=== PATIENT | female | born 1955 | race Caucasian/White ===

== ENCOUNTER → 2018-07-20 07:59 | Outpatient (CLI) | payer SELFPAY ==
[2018-07-20 08:29] LABS: Erythrocyte Sedimentation Rate 2 mm/hr (0-30)
[2018-07-20 08:31] LABS: Hematocrit 43.4 % (37-47); Hemoglobin 14.6 g/dl (12.0-15.0); Mean Corp Hgb Conc 33.6 g/gl (32-36); Mean Corpuscular Volume 86.3 fL (81-99); Mean Platelet Vol. 9.4 fl (6.2-12.0); Platelet Count 223 K/mm3 (150-450); RBC Distribution Width CV 13.7 % (11.6-14.6); RBC Distribution Width SD 42.1 fl (35.1-43.9); Red Blood Count 5.03 M/mm3 (4.2-5.4); Scan Indicated on CBC? Y/N NO; White Blood Count 4.7 K/mm3 (4.4-11.0)
[2018-07-20 08:49] LABS: ALB/GLOB Ratio 1.1 RATIO (0.9-2.4); AST(SGOT) 15 U/L (15-37); Alanine Aminotransfer ALT/SGPT 19 U/L (13-56); Albumin, Serum 4.1 g/dL (3.2-5.0); Alkaline Phosphatase 74 U/L (45-117); Anion Gap 7 (5-15); BUN 16 mg/dL (7-18); BUN/Creat Ratio 19.6 RATIO (10-20); Chloride 106 mmol/L (98-107); Cholesterol 260 mg/dL (200); Creatinine, Serum 0.82 mg/dL (0.55-1.02); EST Glomerular Filtration Rate 76 mL/min (>60); Est Glom Filt Rate - Afr Amer 92 mL/min (>60); Globulin 3.7 g/dL (2.2-4.2); Glucose 116 mg/dL (74-106); High Density Lipoprotein 72 mg/dL; Potassium 3.6 mmol/L (3.5-5.1); Protein, Total 7.8 g/dL (6.4-8.2); Sodium Level 141 mmol/L (136-145); Thyroid Stim Hormone (TSH) 1.78 uIU/mL (0.358-3.74); Triglycerides 89 mg/dL; Very Low Density Lipoprotein 18 mg/dL (5-40)
== END ==
PROVIDERS: Visit Provider Internal Medicine
DX: Z00.00 Encounter for general adult medical examination without abnormal findings (principal); R26.89 Other abnormalities of gait and mobility
CPT/HCPCS: 36415; 80053; 80061; 84443; 85027; 85652

== ENCOUNTER → 2018-08-01 07:57 | Outpatient (CLI) | payer SELFPAY ==
--- NOTE | 2018-08-01 08:15 | MRI_ITS ---
STUDY: MRI BRAIN WITH AND WITHOUT CONTRAST (ATTENTION INTERNAL AUDITORY CANALS - I.A.C.'s) REASON FOR EXAM: Female, 63 years old. Vertigo TECHNIQUE: Standardized multiplanar fat and water weighted pulse sequences were obtained. 11 IV Dotarem was administered for the contrast portion of the examination. COMPARISON: None. FINDINGS: Normal bilateral temporal bones. Normal bilateral internal auditory canals. There is no demonstrated intracanalicular or cisternal vestibular schwannoma (acoustic neuroma). There is no enhancement of the bilateral VIIth or VIIIth cranial nerves. Normal bilateral cochlea, vestibules and semicircular canals. Normal size of the ventricles and extra-axial spaces for the patient's age. Normal white matter tracts of the supratentorial brain. Normal bilateral basal ganglia. Normal thalami. Normal flow voids within the major intracranial circulation suggesting patency by spin echo criteria. Normal venous enhancement. There is no enhancing intra-axial or extra-axial abnormality. There is no extra-axial fluid accumulation. Normal sella turcica, pituitary gland, infundibular stalk, optic chiasm and hypothalamus. Normal tectal plate and pineal gland. Normal midbrain, gayle and medulla. Normal cerebellum. Normal basal cisterns. No demonstrated orbital abnormality, within the constraints of a routine brain study. Left maxillary sinus disease. Normal calvarium and skull base. Normal visualized soft tissue structures. Normal visualized upper cervical spine. MRI/Brain W/WO Contrast IMPRESSION: Normal unenhanced and enhanced MRI of the bilateral internal auditory canals (I.A.C's). No evidence of acute intra-axial pathology. Electronically Signed: Ananda Cross MD at 10:40 EDT Tel , Service support ,
== END ==
PROVIDERS: Family Provider Internal Medicine; PCP Internal Medicine; Referring Provider Internal Medicine; Visit Provider Internal Medicine
DX: R42 Dizziness and giddiness (principal)
CPT/HCPCS: 70553; A9575

== ENCOUNTER → 2023-07-16 | Outpatient (CLI) | payer SELFPAY | END | disposition home or self-care (01) | LOC: LAB 10:45 | PROVIDERS: PCP Internal Medicine | DX: Z00.00 Encounter for general adult medical examination without abnormal findings (principal) | CPT/HCPCS: 36415 ==

== ENCOUNTER 2025-01-07 18:50 | Emergency (ER) | payer MEDICARE, SELFPAY ==
[2025-01-07 18:51] VITALS: BP 143/69; PULSE 99; RESP 16; TEMP 36.2; O2SAT 100; BMI 20.5
--- NOTE | 2025-01-07 19:20 | EKG12_ITS ---
Test Reason : CP Blood Pressure : */* mmHG Vent. Rate : 93 BPM Atrial Rate : 93 BPM P-R Int : 130 ms QRS Dur : 74 ms QT Int : 350 ms P-R-T Axes : 51 41 47 degrees QTcB Int : 435 ms Normal sinus rhythm Normal ECG Confirmed by ANISA BELTRAN, ARIANA ([id number]), news editor SOLIS STARKS ([id number]) on 01/10/2025 8:20:32 AM Referred By: ER Confirmed By: ARIANA LANGE MD
--- NOTE | 2025-01-07 19:21 | ED.VIS.CHEST ---
HPI History of Present Illness Chief Complaint: Chest Pain Narrative Narrative: Patient is a 69-year-old female presenting to the emergency department for "not feeling right" and having intermittent palpitations, shortness of breath and chest pain. Patient has a past medical history of GERD, asthma and a breast lump. Patient states 2 months ago after she got done with a bike ride she felt her heart pounding all night and folic she could not catch her breath. She states since then she has had intermittent episodes of the same feeling along with palpitations and left-sided chest pain. She denies the pain radiating anywhere. She endorses shortness of breath with activity. She denies any diaphoresis, nausea, vomiting or abdominal pain. Denies any lower extremity edema. Denies any recent travel, hospitalizations or surgeries. Denies any history of cardiac problems. Prior Similar Symptoms: No Recent Illness/Hospitalization: No CVD Risk Factors: Negative for Hypertension, Diabetes, Hypercholesterolemia, Family History 1' </=55 or Smoking PE Risk Factors: Negative for Recent Travel/Surgery, Recent Immobilization, Prior DVT or PE, Cancer or OCP + Smoking + >/=35 PFSH PFSH Medical History GERD (gastroesophageal reflux disease) Breast lump Asthma Home Medications Medication Instructions Recorded Last Taken Type NK 12/05/20 Unknown History Allergy/AdvReac Type Severity Reaction Status Date / Time No Known Allergies Allergy Unverified 12/05/20 14:02 Family History Father Heart disease Parkinson disease Mother Thyroid disorder Surgical History H/O breast biopsy Social History Smoking Status: Never smoker alcohol intake: never substance use type: does not use what type of physical activity do you participate in: bicycling frequency: 3-4 times per week ROS ROS ED ROS Narrative See HPI EXAM Physical Exam Narrative Exam Narrative: Vital signs: Reviewed General: Alert and oriented x 3. No acute distress HEENT: Head is normocephalic and atraumatic, sinuses nontender, pupils equal round and reactive. Nares are patent. Oropharynx and throat exams normal. Neck: Supple without lymphadenopathy nontender Cardiovascular: Regular rate and rhythm, no murmurs. No rubs or gallops. Normal S1 and S2 Respiratory: Clear to auscultation bilaterally. No wheezes, rales, rhonchi Abdominal: Soft and nontender. Normal bowel sounds. No guarding or rebound. Nonsurgical abdomen Extremities: No lower extremity edema. No tenderness. No bruising. Normal range of motion. Normal sensation. Skin: No rash or redness. Neurological: Cranial nerves II through XII are grossly intact. Normal strength and sensation. Normal cerebellar function The rest of the physical exam is unremarkable Const Vital Signs: 01/07/25 18:51 01/07/25 19:20 01/07/25 20:00 Temperature 97.1 F L Temperature Source Temporal Pulse Rate 99 77 Respiratory Rate 16 12 Respiratory Effort Normal Non-Labored Blood Pressure 143/69 H 121/67 H Blood Pressure Mean 93 85 Pulse Ox 100 99 Oxygen Delivery Method Room Air 01/07/25 21:08 01/07/25 22:00 01/07/25 22:37 Temperature 98.0 F Temperature Source Pulse Rate 72 65 65 Respiratory Rate 18 16 16 Respiratory Effort Blood Pressure 108/64 111/65 111/65 Blood Pressure Mean 78 80 80 Pulse Ox 100 100 100 Oxygen Delivery Method Room Air Room Air Heart Score History: Slightly/Non-Suspicious ECG: Normal Age: >/= 65 years Risk Factors: No Risk Factors Troponin: </= Normal Limit Score: 2 MDM MDM MDM Narrative Medical decision making narrative: Patient is a 69-year-old female presenting to the emergency department for "not feeling right" and having intermittent palpitations, shortness of breath and chest pain. Patient was seen and examined. Vitals are stable. Patient resting in bed comfortably. No acute distress. Differential includes but is not limited to: Cardiac dysrhythmia, ACS, electrolyte imbalance, thyroid disturbance, CHF, pneumonia. Less likely PE. She is having no dyspnea at time of evaluation. She is at 100% on room air. She is not tachycardic or tachypneic. Has no significant risk factors other than age. EKG shows normal sinus rhythm with no ischemic changes. No dysrhythmia. CBC with no leukocytosis and a normal hemoglobin. BMP with no significant abnormalities. Magnesium within normal limits. TSH within normal limits. BNP within normal limits. Troponin reflex within normal limits. Chest x-ray reviewed by myself, no opacities, pneumothorax or wide mediastinum. Radiology read in agreement. Patient has a low heart score of 2. Patient was updated on the negative lab and imaging findings. I recommended that she follow-up with her primary care doctor for possible Holter monitor given the intermittent symptoms. All questions were answered. Patient discharged from the Emergency Department. I do not feel that the patient's evaluation reveals any acute reason for admission at this time. I instructed them to either follow-up with their primary care physician or promptly return to the Emergency Department for reevaluation should symptoms worsen or new symptoms develop. I explained what symptoms would indicate the need to return to the emergency department. Shared decision making was used. The patient voiced understanding of the treatment plan and is agreeable with it. Clinical impression Chest pain Heart palpitations History & Record Review Discussion w/independent historian: Patient, Family and Significant other Lab Data Attestation: I reviewed the patient's lab results. Labs: Laboratory Results - last 24 hr 01/07/25 01/07/25 19:20 21:20 WBC 5.4 RBC 4.21 Hgb 12.4 Hct 36.8 L MCV 87.4 MCH 29.5 MCHC 33.7 RDW Std Deviation 43.5 RDW Coeff of Carl 13.6 Plt Count 224 MPV 9.9 Immature Gran % (Auto) 0.200 Neut % (Auto) 47.3 Lymph % (Auto) 37.1 [place]affee % (Auto) 10.8 H Eos % (Auto) 3.9 Baso % (Auto) 0.7 Absolute Neuts (auto) 2.6 Absolute Lymphs (auto) 2.02 Nucleated RBC % 0 Sodium 139 Potassium 3.9 Chloride 104 Carbon Dioxide 24.8 Anion Gap 11 BUN 20 H Creatinine 0.81 Estim Creat Clear Calc 59.36 Est GFR (MDRD) Non-Af 80 BUN/Creatinine Ratio 24.5 H Glucose 102 H Calcium 9.3 Magnesium 2.1 Troponin T High Sens < 6 Troponin T Hi Sens 2 Hr 7 NT pro BNP II 122 TSH 3.280 Radiography Chest X-Ray - ED: 2 View, Read by ED Physician, Normal, No Acute Disease and No Infiltrates Diagnostic Testing: Clinical Impression(s) from Imaging Studies Chest X-Ray 01/07/25 19:40 IMPRESSION: NO ACUTE FINDINGS. Reading Location: [facility] Discharge Plan Triage Chief Complaint: Chest Pain ED Provider: Goldie Escamilla Dx/Rx/DC Orders Clinical Impression: Heart palpitations, Chest pain Instructions: Understanding Heart Palpitations, ED Chest Pain, Uncertain Cause Prescriptions: No Action NK Primary Care Provider: Kathy Zacarias Referrals: Kathy Zacarias MD [Primary Care Provider, Internal Medicine - [facility]] - As soon as possible Activity Restrictions/Additional Instructions: You can speak with your primary care doctor about possibly having a Holter monitor placed. Your evaluation in the Emergency Department did not reveal any acute reason for admission. However, I want to emphasize that you may be early in the course of a disease process or illness even if it is not present. For this reason you should follow-up within 24 hours for reevaluation with either your primary care physician or if necessary back here in the Emergency Department. You should return to the Emergency Department immediately if your symptoms worsen or new symptoms develop. Print Language: Kittitian Disposition Disposition: Home, Self Care Discharge Date/Time: 01/07/25 22:38
--- OUTSIDE RECORDS SUMMARY | 2025-01-07 19:37 | XMS RPT_ITS | CCD ---
Author Organization [facility] Care Team Providers Care Playground Official Name Role Phone IAIN LIM Referring Unavailable IAIN LIM Attending Unavailable Kathy Zacarias Primary Care Unavailable Encounters Encounter Date Encounter Type Care Provider Facility Start: 07-23-2023 Encounter for genera l adult medical examination without abnormal findings [facility] Start: 07-16-2023 End: 07-16-2023 ambulatory [facility] Facility:[facility] Payers Date Payer Category Payer Self-pay Unknown [id number] Summary Purpose Family History No Family History Records Found Advance Directives No Advanced Directives Records Found Additional Source Comments INFORMATION SOURCE (unrecogn ized section and content) DATE CREATED AUTHOR 07/25/2023 [facility] FOR RECORDS PERTAINING TO PATIENTS WHO ARE OR HAVE BEEN ENROLLED IN A CHEMICAL DEPENDENCY/SUBSTANCEABUSE PROGRAM, SOME INFORMATION MAY BE OMITTED. This clinical summary was aggregated from multiple sources. Caution should be exercised in using it in the provision of clinical care. This summary normalizes information from multiple sources, and as a consequence, information in this document may materially change the coding, format and clinical context of patient data. In addition, data may be omitted in some cases. CLINICAL DECISIONS SHOULD BE BASED ON THE PRIMARY CLINICAL RECORDS. [employer] provides no warranty or guarantee of the accuracy or completeness of information in this document.
--- NOTE | 2025-01-07 19:40 | RAD_ITS ---
PROCEDURE: CHEST PA AND LATERAL 01/07/2025 REASON FOR EXAM: CHEST PAIN TECHNIQUE: Procedure Code: RADCXR Modality: DX Procedure: CHEST PA AND LATERAL COMPARISON: None available. FINDINGS: Hardware: None. Heart: The heart size is normal. Mediastinum: The mediastinal contour is unremarkable. Lungs: The lungs are clear. No pneumothorax or pleural effusion. Bones: The bones are unremarkable. RAD/Chest PA and Lateral IMPRESSION: NO ACUTE FINDINGS. Reading [facility]
[2025-01-07 19:45] LABS: Hematocrit 36.8 % (37-47); Hemoglobin 12.4 g/dL (12.0-15.0); Immature Granulocytes Count 0.010 X10^3/uL (0.0-0.0); Mean Corp Hgb Conc 33.7 g/dL (32-36); Mean Corpuscular Volume 87.4 fL (81-99); Mean Platelet Vol. 9.9 fl (6.2-12.0); NRBC Flagged by Analyzer 0 % (0-5); Platelet Count 224 K/mm3 (150-450); RBC Distribution Width CV 13.6 % (11.6-14.6); RBC Distribution Width SD 43.5 fl (35.1-43.9); Red Blood Count 4.21 M/mm3 (4.2-5.4); White Blood Count 5.4 K/mm3 (4.4-11.0)
[2025-01-07 20:00] VITALS: BP 121/67; PULSE 77; RESP 12; O2SAT 99
[2025-01-07 20:01] LABS: Anion Gap 11 (5-15); BUN 20 mg/dL (4-19); BUN/Creat Ratio 24.5 RATIO (10-20); Calcium,Total 9.3 mg/dL (7.6-11.0); Carbon Dioxide 24.8 mmol/L (21.0-32.0); Chloride 104 mmol/L (98-108); Estimated Creatinine Clearance 59.36 ml/min (50-250); Glucose 102 mg/dL (70-99); Magnesium 2.1 mg/dL (1.5-2.2); Potassium 3.9 mmol/L (3.3-5.1); Pro- Brain NATRIURETIC PEPTIDE 122 pg/mL (<=900); Troponin T High Sensitivity < 6 ng/L (<=14)
[2025-01-07 21:08] VITALS: BP 108/64; PULSE 72; RESP 18; O2SAT 100
[2025-01-07 21:56] LABS: Troponin T High Sens 2 HR 7 ng/L (<=14)
[2025-01-07 22:00] VITALS: BP 111/65; PULSE 65; RESP 16; O2SAT 100
[2025-01-07 22:37] VITALS: BP 111/65; PULSE 65; RESP 16; TEMP 36.7; O2SAT 100
== END 2025-01-07 22:38 | disposition home or self-care (01) ==
PROVIDERS: Emergency Provider Student in an Organized Health Care Education/Training Program; PCP Internal Medicine; Visit Provider Student in an Organized Health Care Education/Training Program
DX: R07.9 Chest pain, unspecified (principal); R06.02 Shortness of breath; R00.2 Palpitations
CPT/HCPCS: 71046; 80048; 83735; 83880; 84443; 84484; 85025; 93005; 99284; A4216